=== PATIENT | male | born 1985 | race Caucasian/White ===

== ENCOUNTER 2019-05-14 12:52 | Emergency (ER) | payer OTHER ==
[~2019-05-14] VITALS: Ht 170.2 cm; Wt 57.8 kg
[2019-05-14] MEDS ORDERED: NS 1,000 ML IV ONE (14:15)
[2019-05-14 14:35] LABS: BASO # 0.1 10^3/uL (0.0-0.2); BASO % 1.9 % (0.0-1.0); EOS # 0.1 10^3/uL (0.0-0.50); EOS % 1.1 % (0.0-3.0); HEMOGLOBIN 15.8 g/dl (13.5-17.5); LYMPH # 0.9 10^3/uL (1.5-4.5); LYMPH % 17.9 % (24.0-44.0); MEAN CORPUSCULAR HEMOGLOBIN 34.7 pg (27.0-33.0); MEAN CORPUSCULAR HGB CONC 34.3 g/dl (32.0-36.5); MEAN CORPUSCULAR VOLUME 101.1 fl (80.0-96.0); MONO # 0.7 10^3/uL (0.0-0.8); MONO % 14.1 % (0.0-5.0); NEUTROPHILS # 3.4 10^3/uL (1.8-7.7); NEUTROPHILS % 64.4 % (36.0-66.0); PLATELET COUNT, AUTOMATED 259 10^3/uL (150-450); RED BLOOD COUNT 4.55 10^6/uL (4.30-6.10); WHITE BLOOD COUNT 5.3 10^3/uL (4.0-10.0)
[2019-05-14 15:14] LABS: ALBUMIN 4.4 GM/DL (3.2-5.2); ALT/SGPT 146 U/L (12-78); BILIRUBIN,DIRECT 0.2 MG/DL (0.0-0.2); BILIRUBIN,TOTAL 0.7 MG/DL (0.2-1.0); BLOOD UREA NITROGEN 11 MG/DL (7-18); CALCIUM LEVEL 8.9 MG/DL (8.5-10.1); CARBON DIOXIDE LEVEL 32 MEQ/L (21-32); CHLORIDE LEVEL 104 MEQ/L (98-107); CREATININE FOR GFR 0.72 MG/DL (0.70-1.30); ETHYL ALCOHOL (ETHANOL) < 0.003 % (0.000-0.010); GLOMERULAR FILTRATION RATE > 60.0 (>60); GLUCOSE, FASTING 90 MG/DL (70-100); LIPASE 235 U/L (73-393); POTASSIUM SERUM 4.7 MEQ/L (3.5-5.1); SODIUM LEVEL 140 MEQ/L (136-145); TOTAL PROTEIN 8.5 GM/DL (6.4-8.2)
--- NOTE | 2019-05-14 15:58 | REP ---
CT ABDOMEN AND PELVIS WITHOUT CONTRAST: CT abdomen and pelvis performed without oral or IV contrast. Sagittal and coronal reconstruction images are performed. Visualized lung bases are clear. The liver, gallbladder, spleen, adrenals, pancreas, and kidneys are grossly unremarkable. No renal, ureteral or bladder calculus is seen. There is no evidence of hydroureteronephrosis. There is no evidence of abdominal aortic aneurysm. I see no adenopathy. I see no free air or free fluid. No bowel wall thickening is seen. I see no evidence of appendicitis. Urinary bladder is grossly unremarkable. IMPRESSION: Grossly negative noncontrast CT abdomen and pelvis. No evidence of renal, ureteral, or bladder calculus and no evidence of hydroureteronephrosis. Electronically Signed by Josue Pederson MD 05/16/2019 12:35 P
--- NOTE | 2019-05-14 16:00 | REP ---
RIGHT RIB SERIES: Four views of the right ribs are performed. No fracture or bone lesion is seen. IMPRESSION: No evidence of right rib fracture. Electronically Signed by Josue Pederson MD 05/16/2019 12:35 P
[2019-05-14 16:22] VITALS: BP 126/79
== END 2019-05-14 17:05 | disposition home or self-care (01) ==
LOC: M ED 12:52
DX: S20.211A Contusion of right front wall of thorax, initial encounter (principal); W19.XXXA Unspecified fall, initial encounter; Y92.89 Other specified places as the place of occurrence of the external cause; R79.89 Other specified abnormal findings of blood chemistry; R11.0 Nausea; K21.9 Gastro-esophageal reflux disease without esophagitis; Z77.098 Contact with and (suspected) exposure to other hazardous, chiefly nonmedicinal, chemicals; Z72.89 Other problems related to lifestyle; Z88.0 Allergy status to penicillin; Z88.2 Allergy status to sulfonamides
CPT/HCPCS: 36415; 71100; 74176; 80048; 80076; 81001; 83690; 85025; 96360; 96361; 99284; G0480